=== PATIENT | female | born 1990 | race Caucasian/White ===

== ENCOUNTER 2018-04-12 21:22 | Emergency (ER) | payer BC ==
[~2018-04-12] VITALS: Ht 170.2 cm; Wt 54.4 kg
[~2018-04-12 21:22] MED LIST: ESCITALOPRAM OX10 MG PO; LOXAPINE5 MG PO; TOPAMAX 25 MG T25 M1 PO; XANAX1 MG PO
[2018-04-12] MEDS ORDERED: ESCITALOPRAM OX20 MG (21:44)
[2018-04-12] MEDS ORDERED: AMPHETAMINE SAL30 MG (21:44)
[2018-04-12] MEDS ORDERED: TRAZODONE HCL50 MG (21:44)
[2018-04-12] MEDS ORDERED: RISPERDAL 1 MG T1 MG (21:45)
[2018-04-12 21:52] LABS: ABSOLUTE LYMPHOCYTES 0.6 thou/uL (0.8-5.3); ABSOLUTE MONOCYTES 0.3 thou/uL (0.0-1.2); ABSOLUTE NEUTROPHILS 2.3 thou/uL (1.6-8.1); BASOPHILS 0.2 %; HEMATOCRIT 40.6 % (37.0-47.0); HEMOGLOBIN 13.5 gm/dL (12.0-15.0); LYMPHOCYTES 18.7 %; MCH 31.1 pg (26.0-34.0); MCHC 33.3 g/dL (28.0-37.0); MCV 93.4 fL (80.0-100.0); MONOCYTES 8.7 %; MPV 8.2 fl. (7.2-11.1); NUCLEATED RBCS 0 /100WBC; PLATELET COUNT* 118 thou/uL (150-400); POLYS 71.4 %; RBC 4.34 mil/uL (4.20-5.00); RDW-CV 12.8 % (10.5-14.5); WBC 3.2 thou/uL (4.0-11.0)
[2018-04-12 22:04] LABS: ALBUMIN 3.5 g/dL (3.4-5.0); CALCIUM 8.3 mg/dL (8.5-10.1); CREATININE 0.7 mg/dL (0.6-1.3); POTASSIUM 3.2 mmol/L (3.5-5.1); TOTAL BILIRUBIN 0.4 mg/dL (<0.1-1.0); TOTAL PROTEIN 6.6 g/dL (6.4-8.2)
[2018-04-12 22:22] LABS: URINE BILIRUBIN NEGATIVE (Negative); URINE BLOOD NEGATIVE (Negative); URINE CLARITY CLEAR; URINE COLOR YELLOW; URINE GLUCOSE-RANDOM NEGATIVE (Negative); URINE KETONES NEGATIVE (Negative); URINE LEUKOCYTES-REFLEX NEGATIVE (Negative); URINE NITRITE-REFLEX NEGATIVE (Negative); URINE PROTEIN NEGATIVE (Negative); URINE SPECIFIC GRAVITY 1.025 (1.005-1.030)
[2018-04-13] MEDS ORDERED: NORCO 5-325 TA1 EACH PO (00:09)
[2018-04-13] MEDS ORDERED: BENTYL 20 MG TA20 M1 PO (00:09)
[2018-04-13] MEDS ORDERED: ZOFRAN ODT4 MG PO (00:09)
[2018-04-13 00:36] VITALS: BP 108/71
== END 2018-04-13 00:39 | disposition home or self-care (01) ==
LOC: M.ERS 21:22
PROVIDERS: Physician Assistant
DX: G89.29 Other chronic pain (principal); R10.31 Right lower quadrant pain; R10.32 Left lower quadrant pain; N83.8 Other noninflammatory disorders of ovary, fallopian tube and broad ligament; Z90.710 Acquired absence of both cervix and uterus; Z88.0 Allergy status to penicillin; Z88.1 Allergy status to other antibiotic agents; Z88.5 Allergy status to narcotic agent; Z88.8 Allergy status to other drugs, medicaments and biological substances

== ENCOUNTER 2018-04-17 21:30 | Emergency (ER) | payer BC ==
[~2018-04-17] VITALS: Ht 170.2 cm; Wt 55.3 kg
[~2018-04-17 21:30] MED LIST changes: +AMPHETAMINE SAL30 MG; +BENTYL 20 MG TA20 M1 PO; +ESCITALOPRAM OX20 MG; +NORCO 5-325 TA1 EACH PO; +RISPERDAL 1 MG T1 MG; +TRAZODONE HCL50 MG; +ZOFRAN ODT4 MG PO
[2018-04-17 22:17] LABS: ABSOLUTE EOSINOPHILS 0.1 thou/uL (0.0-0.7); ABSOLUTE LYMPHOCYTES 0.8 thou/uL (0.8-5.3); ABSOLUTE MONOCYTES 0.5 thou/uL (0.0-1.2); ABSOLUTE NEUTROPHILS 3.6 thou/uL (1.6-8.1); BASOPHILS 0.4 %; EOSINOPHILS 1.4 %; HEMATOCRIT 39.2 % (37.0-47.0); HEMOGLOBIN 13.2 gm/dL (12.0-15.0); MCH 31.1 pg (26.0-34.0); MCHC 33.7 g/dL (28.0-37.0); MCV 92.2 fL (80.0-100.0); MONOCYTES 9.7 %; MPV 7.7 fl. (7.2-11.1); NUCLEATED RBCS 0 /100WBC; PLATELET COUNT* 181 thou/uL (150-400); POLYS 72.5 %; RBC 4.25 mil/uL (4.20-5.00); RDW-CV 12.9 % (10.5-14.5)
[2018-04-17 22:42] LABS: CALCIUM 8.4 mg/dL (8.5-10.1); CREATININE 0.7 mg/dL (0.6-1.3); POTASSIUM 3.9 mmol/L (3.5-5.1)
[2018-04-17 22:47] LABS: ALBUMIN 3.4 g/dL (3.4-5.0); TOTAL BILIRUBIN 0.2 mg/dL (<0.1-1.0); TOTAL PROTEIN 6.4 g/dL (6.4-8.2)
[2018-04-17] MEDS ORDERED: NORCO 5-325 TA1 EACH PO (23:03)
[2018-04-17] MEDS ORDERED: PHENERGAN 25 MG25 M1 PO (23:05)
[2018-04-17 23:31] VITALS: BP 108/70
== END 2018-04-17 23:40 | disposition home or self-care (01) ==
LOC: M.ERS 21:30
PROVIDERS: Physician Assistant
DX: G89.29 Other chronic pain (principal); R10.11 Right upper quadrant pain; R10.12 Left upper quadrant pain; Z90.710 Acquired absence of both cervix and uterus; Z88.0 Allergy status to penicillin; Z88.1 Allergy status to other antibiotic agents; Z88.5 Allergy status to narcotic agent; Z88.6 Allergy status to analgesic agent; Z88.8 Allergy status to other drugs, medicaments and biological substances

== ENCOUNTER 2019-12-23 15:09 | Emergency (ER) | payer OTHER ==
[~2019-12-23] VITALS: Ht 170.2 cm; Wt 72.6 kg
[~2019-12-23 15:09] MED LIST changes: +BUSPIRONE HCL15 MG PO; +BUTALB-APAP-CA1 EACH PO; +COMPAZINE25 M1 RECTAL; +PHENERGAN 25 MG25 M1 PO; +TOPAMAX 100 MG100 MG PO; +TRAZODONE HCL100 MG PO; +WELLBUTRIN SR200 MG PO
[2019-12-23 15:22] VITALS: BP 113/85
[2019-12-23] MEDS ORDERED: XANAX2 MG PO (15:25)
[2019-12-23] MEDS ORDERED: DRIZALMA SPRINK20 MG PO (15:25)
[2019-12-23] MEDS ORDERED: BENADRYL25 MG PO (15:25)
== END 2019-12-23 16:43 | disposition home or self-care (01) ==
LOC: M.ERS 15:09
DX: S90.32XA Contusion of left foot, initial encounter (principal); Z90.710 Acquired absence of both cervix and uterus; Z88.1 Allergy status to other antibiotic agents; Z88.0 Allergy status to penicillin; Z88.5 Allergy status to narcotic agent; Z88.6 Allergy status to analgesic agent; W22.8XXA Striking against or struck by other objects, initial encounter; Y93.89 Activity, other specified; Y92.89 Other specified places as the place of occurrence of the external cause; Y99.8 Other external cause status

== ENCOUNTER 2020-10-08 06:28 | Emergency (ER) | payer OTHER ==
[~2020-10-08] VITALS: Ht 170.2 cm; Wt 72.6 kg
[~2020-10-08 06:28] MED LIST changes: +BENADRYL25 MG PO; +DRIZALMA SPRINK20 MG PO; +XANAX2 MG PO
[2020-10-08 06:58] LABS: URINE BILIRUBIN NEGATIVE (Negative); URINE BLOOD 1+ (Negative); URINE CLARITY CLEAR; URINE COLOR YELLOW; URINE GLUCOSE-RANDOM NEGATIVE (Negative); URINE KETONES NEGATIVE (Negative); URINE LEUKOCYTES-REFLEX 2+ (Negative); URINE NITRITE-REFLEX NEGATIVE (Negative); URINE PROTEIN NEGATIVE (Negative); URINE SPECIFIC GRAVITY 1.025 (1.005-1.030); URINE UROBILINOGEN 0.2 E.U./dl (0.2-1.0)
[2020-10-08 07:06] LABS: AMP/METHAMP Negative (Negative); BARBITURATES Negative (Negative); BENZODIAZEPINES POSITIVE (Negative); COCAINE Negative (Negative); METHADONE Negative (Negative); OPIATES Negative (Negative); PCP Negative (Negative); THC POSITIVE (Negative)
[2020-10-08 07:08] LABS: ABSOLUTE EOSINOPHILS 0.1 thou/uL (0.0-0.7); ABSOLUTE LYMPHOCYTES 2.1 thou/uL (0.8-5.3); ABSOLUTE MONOCYTES 0.7 thou/uL (0.0-1.2); ABSOLUTE NEUTROPHILS 3.6 thou/uL (1.6-8.1); BASOPHILS 0.6 %; EOSINOPHILS 2.2 %; HEMATOCRIT 37.8 % (37.0-47.0); HEMOGLOBIN 12.9 gm/dL (12.0-15.0); MCH 30.8 pg (26.0-34.0); MCHC 34.3 g/dL (28.0-37.0); MCV 89.8 fL (80.0-100.0); MONOCYTES 10.1 %; MPV 7.5 fl. (7.2-11.1); NUCLEATED RBCS 0 /100WBC; PLATELET COUNT* 223 thou/uL (150-400); POLYS 55.1 %; RDW-CV 12.7 % (10.5-14.5); WBC 6.5 thou/uL (4.0-11.0)
[2020-10-08 07:15] LABS: CALCIUM 8.5 mg/dL (8.5-10.1); CREATININE 0.7 mg/dL (0.6-1.3); POTASSIUM 3.4 mmol/L (3.5-5.1)
[2020-10-08 07:15] LABS: SQUAMOUS 0-3 Few /LPF (0-3); URINE RBC 3-10 Few /HPF (0-2)
[2020-10-08 07:16] LABS: BACTERIA-REFLEX 1-9 Few /HPF (None Seen); CASTS None Seen /LPF (None Seen); CRYSTALS None Seen /LPF (None Seen); MUCUS 0-3 Light strn/LPF (None Seen)
[2020-10-08 07:26] LABS: TOTAL BILIRUBIN 0.3 mg/dL (<0.1-1.0); TOTAL PROTEIN 7.8 g/dL (6.4-8.2)
[2020-10-08 08:29] VITALS: BP 113/86
== END 2020-10-08 08:30 | disposition home or self-care (01) ==
LOC: M.ERS 06:28
PROVIDERS: Personal Emergency Response Attendant
DX: S00.83XA Contusion of other part of head, initial encounter (principal); R55 Syncope and collapse; Z90.710 Acquired absence of both cervix and uterus; Z88.1 Allergy status to other antibiotic agents; Z88.0 Allergy status to penicillin; Z88.8 Allergy status to other drugs, medicaments and biological substances; Z88.6 Allergy status to analgesic agent; Z79.899 Other long term (current) drug therapy; W01.0XXA Fall on same level from slipping, tripping and stumbling without subsequent striking against object, initial encounter; Y93.89 Activity, other specified; Y92.89 Other specified places as the place of occurrence of the external cause; Y99.8 Other external cause status